=== PATIENT | female | born 1990 | race Caucasian/White ===

== ENCOUNTER 2018-06-14 06:10 | Emergency (ER) | payer SELFPAY ==
[2018-06-14] MEDS ORDERED: ONDANSETRON 4 MG/2 ML VIAL ONE (06:33)
[2018-06-14] MEDS ORDERED: MORPHINE 4 MG/ML SYR ONE ×2 (06:33→08:29)
[2018-06-14] MEDS ORDERED: NA CHLORIDE 0.9% 1,000 ML ONE (06:33)
[2018-06-14 06:37] LABS: Absolute Lymphocytes (CBC) 1.5 K/uL (0.7-4.9); Absolute Monocytes 0.5 K/uL (0.1-1.3); Absolute Neutrophil 8.3 K/uL (1.8-8.0); Basophils % 0.1 % (0-1.3); Eosinophils % 0.5 % (0-4.4); Hematocrit 30.8 % (36.0-45.0); Lymphocytes % 14.8 % (15.3-44.8); MPV 7.5 fL (7.6-11.3); Monocytes % 4.5 % (3.3-12.3); RBC Red Blood Cell Count 4.77 M/uL (3.86-4.86)
[2018-06-14 06:50] LABS: ALT/SGPT 26 U/L (12-78); AST/SGOT 14 U/L (15-37); Albumin 3.7 g/dL (3.4-5.0); Alkaline Phosphatase 75 U/L (45-117); BUN Blood Urea Nitrogen 10 mg/dL (7-18); Bicarbonate 27 mmol/L (21-32); Bilirubin Direct < 0.1 mg/dL (0-0.2); Bilirubin Total 0.2 mg/dL (0.2-1.0); Glucose Level 108 mg/dL (74-106); Lipase 88 U/L (73-393); Potassium 3.7 mmol/L (3.5-5.1); Sodium Level 139 mmol/L (136-145)
[2018-06-14 07:01] LABS: Urine Blood TRACE (NEG); Urine Glucose NEGATIVE (NEG); Urine Protein 2+ (NEG); Urine pH 5.5 (5.0-7.0)
[2018-06-14 07:21] LABS: Anisocytosis 1+; Blood Morphology Comment NOTED (NOT SEEN); Hypochromasia 2+; Platelet Estimate INCR; Polychromasia 1+; Urine White Blood Cell Casts OK
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
== END 2018-06-14 09:03 | disposition home or self-care (01) ==
LOC: ER 06:10
DX: S16.1XXA Strain of muscle, fascia and tendon at neck level, initial encounter (principal); D64.9 Anemia, unspecified; V48.4XXA Person boarding or alighting a car injured in noncollision transport accident, initial encounter; Z88.0 Allergy status to penicillin
CPT/HCPCS: 36415; 70450; 71260; 72125; 74177; 80048; 80076; 81003; 81025; 83690; 85025; 87086; 87088; 96374; 96375; 99285; J2405; J7030; Q9967

== ENCOUNTER 2018-08-25 17:28 | Emergency (ER) | payer SELFPAY ==
--- NOTE | 2018-08-25 18:05 | EDPHYS ---
Physician Documentation [facility] Name: Jess Vasquez Age: 28 yrs Sex: Female : 1990 Arrival Date: 08/25/2018 Time: 17:30 Bed 11 Private MD: None, None ED Physician Sebastien Judd HPI: 08/25 17:51 This 28 yrs old Female presents to ER via Ambulatory with complaints of Ear ps1 Pain, Sore Throat. 17:51 patient was seen and evaluated in [place] and was rx auralgan and some antibiotic for ps1 left ear infection. Here for second opinion now that she is back [place] the [place]. Started medications yesterday. Pain localized to front of ear and in the ear. No fever. . 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 - Social history:: Smoking status: Patient/guardian denies using tobacco. - Ebola Screening: : No symptoms or risks identified at this time. ROS: 17:51 Constitutional: Negative for fever, chills, and weight loss, Eyes: Negative for injury, ps1 pain, redness, and discharge, Cardiovascular: Negative for chest pain, palpitations, and edema, Respiratory: Negative for shortness of breath, cough, wheezing, and pleuritic chest pain, Abdomen/GI: Negative for abdominal pain, nausea, vomiting, diarrhea, and constipation, Neuro: Negative for headache, weakness, numbness, tingling, and seizure, Psych: Negative for depression, anxiety, suicide ideation, homicidal ideation, and hallucinations. 17:51 ENT: Positive for ear pain. Exam: 17:51 Constitutional: This is a well developed, well nourished patient who is awake, alert, ps1 and in no acute distress. Head/Face: Normocephalic, atraumatic. Eyes: Pupils equal round and reactive to light, extra-ocular motions intact. Lids and lashes normal. Conjunctiva and sclera are non-icteric and not injected. Cardiovascular: Regular rate and rhythm. No gallops, murmurs, or rubs. Normal PMI, no JVD. No pulse deficits. Respiratory: Lungs have equal breath sounds bilaterally, clear to auscultation and percussion. No rales, rhonchi or wheezes noted. No increased work of breathing, no retractions or nasal flaring. Abdomen/GI: Soft, non-tender, with normal bowel sounds. No distension or tympany. No guarding or rebound. No evidence of tenderness throughout. Skin: Warm, dry with normal turgor. Normal color with no rashes, no lesions, and no evidence of cellulitis. MS/ Extremity: Pulses equal, no cyanosis. Neurovascular intact. Full, normal range of motion. 17:51 ENT: External ear(s): are unremarkable, Ear canal(s): are normal, TM's: bulging, decreased mobility, on the left. Vital Signs: 17:36 BP 118 / 70; Pulse 69; Resp 16 S; Temp 98.6(O); Pulse Ox 99% on R/A; Weight 98.88 kg aa5 (R); Height 5 ft. 5 in. (165.10 cm) (R); Pain 10/10; 17:36 Body Mass Index 36.28 (98.88 kg, 165.10 cm) aa5 MDM: 17:51 Data reviewed: vital signs, nurses notes, and as a result, I will discharge patient. ED ps1 course: continue with auralgan drops and will prescribe ciproHC otic. Stable for dc. . 18:04 Patient medically screened. ps1 Administered Medications: No medications were administered Disposition: 08/25/18 18:04 Discharged to Home. Impression: Other acute nonsuppurative otitis media, left ear. - Condition is Stable. - Discharge Instructions: Ear Drops, Adult, Otitis Media, Adult. - Prescriptions for Cipro HC 0.2- 1 % Otic Drops - instill 3 drop by OTIC route every 12 hours for 7 days; 10 milliliter. - Work release form, Medication Reconciliation Form, Thank You Letter, Antibiotic Education, Prescription Opioid Use form. - Follow up: Private Physician; When: As needed; Reason: Recheck today's complaints. Follow up: Emergency Department; When: As needed; Reason: Worsening of condition. - Problem is an ongoing problem. - Symptoms have worsened. Signatures: Jennifer Story RN RN aa5 Jovanna Hernandez RN Sebastien Burch MD MD ps1 Corrections: (The following items were deleted from the chart) 18:04 18:04 08/25/2018 18:04 Discharged to Home. Impression: Other acute nonsuppurative ps1 otitis media, left ear. Condition is Stable. Forms are Medication Reconciliation Form, Thank You Letter, Antibiotic Education, Prescription Opioid Use. Follow up: Private Physician; When: As needed; Reason: Recheck today's complaints. Follow up: Emergency Department; When: As needed; Reason: Worsening of condition. ps1 18:19 18:04 08/25/2018 18:04 Discharged to Home. Impression: Other acute nonsuppurative hb otitis media, left ear. Condition is Stable. Forms are Medication Reconciliation Form, Thank You Letter, Antibiotic Education, Prescription Opioid Use. Follow up: Private Physician; When: As needed; Reason: Recheck today's complaints. Follow up: Emergency Department; When: As needed; Reason: Worsening of condition. Problem is an ongoing problem. Symptoms have worsened. ps1
--- NOTE | 2018-08-25 18:05 | ER ---
Nurse's Notes [facility] Name: Jess Vasquez Age: 28 yrs Sex: Female : 1990 Arrival Date: 08/25/2018 Time: 17:30 Bed 11 Private MD: None, None Diagnosis: Other acute nonsuppurative otitis media, left ear Presentation: 08/25 17:35 Presenting complaint: Patient states: left ear pain and sore throat that began 1 week aa5 ago. Pt states "I was prescribed antibiotics yesterday in [place]". Transition of care: patient was not received from another setting of care. Onset of symptoms was August 2018. Risk Assessment: Do you want to hurt yourself or someone else? Patient reports no desire to harm self or others. Initial Sepsis Screen: Does the patient meet any 2 criteria? No. Patient's initial sepsis screen is negative. Does the patient have a suspected source of infection? No. Patient's initial sepsis screen is negative. Care prior to arrival: None. 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 - Social history:: Smoking status: Patient/guardian denies using tobacco. - Ebola Screening: : No symptoms or risks identified at this time. Screenin:45 Abuse screen: Denies threats or abuse. Denies injuries from another. Nutritional hb screening: No deficits noted. Tuberculosis screening: No symptoms or risk factors identified. Fall Risk None identified. Assessment: 17:45 General: Appears in no apparent distress. Behavior is calm, cooperative. Pain: Pain hb currently is 7 out of 10 on a pain scale. Neuro: Level of Consciousness is awake, alert, obeys commands, Oriented to person, place, time, situation. Cardiovascular: Capillary refill < 3 seconds Patient's skin is warm and dry. Respiratory: Airway is patent Respiratory effort is even, unlabored, Respiratory pattern is regular, symmetrical, Breath sounds are clear bilaterally. GI: No signs and/or symptoms were reported involving the gastrointestinal system. : No signs and/or symptoms were reported regarding the genitourinary system. EENT: Reports sore throat, left ear pain. Derm: Skin is intact, is healthy with good turgor. Musculoskeletal: No signs and/or symptoms reported regarding the musculoskeletal system. Vital Signs: 17:36 BP 118 / 70; Pulse 69; Resp 16 S; Temp 98.6(O); Pulse Ox 99% on R/A; Weight 98.88 kg aa5 (R); Height 5 ft. 5 in. (165.10 cm) (R); Pain 10/10; 17:36 Body Mass Index 36.28 (98.88 kg, 165.10 cm) aa5 ED Course: 17:31 Patient arrived in ED. mr 17:31 None, None is Private Physician. mr 17:35 Arm band placed on. aa5 17:36 Triage completed. aa5 17:40 Jovanna Hernandez, RN is Primary Nurse. hb 17:43 Sebastien Judd MD is Attending Physician. ps1 17:45 Patient has correct armband on for positive identification. Call light in reach. hb 18:19 No provider procedures requiring assistance completed. Patient did not have IV access hb during this emergency room visit. Administered Medications: No medications were administered Outcome: 18:04 Discharge ordered by . ps1 18:19 Discharged to home ambulatory, with significant other. hb 18:19 Condition: stable 18:19 Discharge instructions given to patient, Instructed on discharge instructions, follow up and referral plans. medication usage, Demonstrated understanding of instructions, follow-up care, medications, Prescriptions given X 1. 18:19 Patient left the ED. hb Signatures: Ofelia Coyne JezJennifer RN RN aa Jovanna Hernandez, RN RN Sebastien Judd MD MD ps1
== END 2018-08-25 18:19 | disposition home or self-care (01) ==
LOC: ER 17:28
DX: H65.192 Other acute nonsuppurative otitis media, left ear (principal); Z88.0 Allergy status to penicillin
CPT/HCPCS: 99282

== ENCOUNTER 2018-09-15 12:53 | Emergency (ER) | payer SELFPAY ==
[2018-09-15 15:37] LABS: Urine Appearance CLOUDY; Urine Color RED; Urine Specific Gravity 1.025 (1.005-1.030)
[2018-09-15 15:38] LABS: Urine Bilirubin NEGATIVE (NEG); Urine Blood 3+ (NEG); Urine Glucose NEGATIVE (NEG); Urine Microscopic Reflex ORDER UMIC; Urine Protein 1+ (NEG); Urine Urobilinogen 0.2 mg/dL (0.2-1.0); Urine pH 5.5 (5.0-7.0)
[2018-09-15 15:39] LABS: Urine Bacteria >50 /HPF (<20); Urine Culture Reflex Order REFLEXED; Urine RBC TNTC /HPF (NONE SEEN)
--- NOTE | 2018-09-15 16:30 | ER ---
Nurse's Notes [facility] Name: Jess Vasquez Age: 28 yrs Sex: Female : 1990 Arrival Date: 09/15/2018 Time: 12:57 Bed 13 Private MD: None, None Diagnosis: Cystitis, unspecified with hematuria Presentation: 09/15 13:29 Presenting complaint: Patient states: Heavy vaginal bleeding that began this morning. ss Pt reports she had her last period 2 weeks ago. Pt denies abnormal vaginal bleeding in the past. Transition of care: patient was not received from another setting of care. Onset of symptoms was September 15, 2018. Risk Assessment: Do you want to hurt yourself or someone else? Patient reports no desire to harm self or others. Initial Sepsis Screen: Does the patient meet any 2 criteria? HR > 90 bpm. Does the patient have a suspected source of infection? No. Patient's initial sepsis screen is negative. Note Pt reports she has been filling a large pad every 30 minutes. Care prior to arrival: None. 13:29 Method Of Arrival: Ambulatory 13:29 Acuity: MAGALY 2 Triage Assessment: 15:24 General: Appears in no apparent distress. distressed, Behavior is calm, cooperative, ph appropriate for age. Neuro: Level of Consciousness is awake, alert, obeys commands, Oriented to person, place, time, situation. Cardiovascular: Capillary refill < 3 seconds. Respiratory: Airway is patent Trachea midline Respiratory effort is even, unlabored, Respiratory pattern is regular. Derm: Skin is intact, is healthy with good turgor, Skin is dry, Skin is pink, warm \\T\\ dry. Skin temperature is warm. Musculoskeletal: Circulation, motion, and sensation intact. 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 - Social history:: Smoking status: Patient/guardian denies using tobacco. - Ebola Screening: : Patient denies exposure to infectious person Patient denies travel to an Ebola-affected area in the 21 days before illness onset. Screenin:00 Abuse screen: Denies threats or abuse. Nutritional screening: No deficits noted. ph Tuberculosis screening: No symptoms or risk factors identified. Fall Risk None identified. Assessment: 14:00 General: Appears in no apparent distress. comfortable, obese, well groomed, Behavior is ph calm, cooperative, appropriate for age, Reports fatigue for 1-2 days, Denies fever, feeling ill. Pain: Denies pain. Neuro: Level of Consciousness is awake, alert, obeys commands, Oriented to person, place, time, situation. Cardiovascular: Capillary refill < 3 seconds in bilateral fingers Patient's skin is warm and dry. Respiratory: Airway is patent Respiratory effort is even, unlabored, Respiratory pattern is regular, symmetrical. GI: Abdomen is round non-distended, Patient currently denies abdominal pain, nausea, vomiting. : Reports vaginal bleeding that is heavy flow "watery" consistency Denies burning with urination, cramping urinary frequency. Derm: Skin is intact, is healthy with good turgor, Skin is pink, warm \\T\\ dry. Musculoskeletal: Circulation, motion, and sensation intact. Range of motion: intact in all extremities. 15:00 Reassessment: Patient appears in no apparent distress at this time. Patient and/or ph family updated on plan of care and expected duration. Pain level reassessed. Patient is alert, oriented x 3, equal unlabored respirations, skin warm/dry/pink. 16:20 Reassessment: Patient appears in no apparent distress at this time. Patient and/or ph family updated on plan of care and expected duration. Pain level reassessed. Patient is alert, oriented x 3, equal unlabored respirations, skin warm/dry/pink. 17:13 Reassessment: Patient appears in no apparent distress at this time. Patient and/or ph family updated on plan of care and expected duration. Pain level reassessed. Patient is alert, oriented x 3, equal unlabored respirations, skin warm/dry/pink. Vital Signs: 13:32 BP 133 / 81; Pulse 106; Resp 15; Temp 98.3(TE); Pulse Ox 100% on R/A; Weight 95.71 kg; ss Height 5 ft. 3 in. (160.02 cm); Pain 0/10; 15:22 BP 119 / 69; Pulse 90; Resp 16; Pulse Ox 100% on R/A; ph 16:17 BP 111 / 59; Pulse 94; Resp 18; Pulse Ox 100% on R/A; ph 13:32 Body Mass Index 37.38 (95.71 kg, 160.02 cm) ED Course: 12:57 Patient arrived in ED. dl4 12:57 None, None is Private Physician. dl4 13:31 Triage completed. ss 13:32 Arm band placed on left wrist. ss 13:38 Bhavya Miranda, RN is Primary Nurse. ph 13:46 Shiraz Melvin MD is Attending Physician. gs 15:26 Bed in low position. Call light in reach. Warm blanket given. ph 16:21 No provider procedures requiring assistance completed. ph 16:27 Niranjan Rogers MD is Referral Physician. gs 17:13 Patient did not have IV access during this emergency room visit. ph Administered Medications: No medications were administered Outcome: 16:29 Discharge ordered by MD. gs 17:12 Discharged to home ambulatory. ph 17:12 Condition: good 17:12 Discharge instructions given to patient, Instructed on discharge instructions, follow up and referral plans. medication usage, Demonstrated understanding of instructions, follow-up care, medications, Prescriptions given X 1. 17:14 Patient left the ED. ph Signatures: Shira Scruggs RN RN Bhavya Miranda RN RN ph Shiraz Melvin MD MD Grant Jane dl4
--- NOTE | 2018-09-15 16:30 | EDPHYS ---
Physician Documentation [facility] Name: eJss Vasquez Age: 28 yrs Sex: Female : 1990 Arrival Date: 09/15/2018 Time: 12:57 Bed 13 Private MD: None, None ED Physician Shiraz Melvin HPI: 09/15 16:16 This 28 yrs old Female presents to ER via Ambulatory with complaints of gs Vaginal Bleeding. 16:16 The patient presents with urinary symptoms, dysuria, hematuria, vaginal bleeding that gs is light. Onset: The symptoms/episode began/occurred yesterday. Modifying factors: The symptoms are alleviated by nothing, the symptoms are aggravated by nothing. Associated signs and symptoms: Pertinent negatives: fever. Associated signs and symptoms: Pertinent negatives: pain to abdomen. Severity of symptoms: At their worst the symptoms were. The patient has not experienced similar symptoms in the past. 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 - Social history:: Smoking status: Patient/guardian denies using tobacco. - Ebola Screening: : Patient denies exposure to infectious person Patient denies travel to an Ebola-affected area in the 21 days before illness onset. ROS: 16:16 All other systems are negative. gs Exam: 16:16 Head/Face: Normocephalic, atraumatic. Eyes: Pupils equal round and reactive to light, gs extra-ocular motions intact. Lids and lashes normal. Conjunctiva and sclera are non-icteric and not injected. Cornea within normal limits. Periorbital areas with no swelling, redness, or edema. ENT: Nares patent. No nasal discharge, no septal abnormalities noted. Tympanic membranes are normal and external auditory canals are clear. Oropharynx with no redness, swelling, or masses, exudates, or evidence of obstruction, uvula midline. Mucous membranes moist. Neck: Trachea midline, no thyromegaly or masses palpated, and no cervical lymphadenopathy. Supple, full range of motion without nuchal rigidity, or vertebral point tenderness. No Meningismus. Chest/axilla: Normal chest wall appearance and motion. Nontender with no deformity. No lesions are appreciated. Cardiovascular: Regular rate and rhythm with a normal S1 and S2. No gallops, murmurs, or rubs. Normal PMI, no JVD. No pulse deficits. Respiratory: Lungs have equal breath sounds bilaterally, clear to auscultation and percussion. No rales, rhonchi or wheezes noted. No increased work of breathing, no retractions or nasal flaring. Abdomen/GI: Soft, non-tender, with normal bowel sounds. No distension or tympany. No guarding or rebound. No evidence of tenderness throughout. Back: No spinal tenderness. No costovertebral tenderness. Full range of motion. Skin: Warm, dry with normal turgor. Normal color with no rashes, no lesions, and no evidence of cellulitis. MS/ Extremity: Pulses equal, no cyanosis. Neurovascular intact. Full, normal range of motion. Neuro: Awake and alert, GCS 15, oriented to person, place, time, and situation. Cranial nerves II-XII grossly intact. Motor strength 5/5 in all extremities. Sensory grossly intact. Cerebellar exam normal. Normal gait. 16:16 Constitutional: The patient appears alert, awake. Vital Signs: 13:32 BP 133 / 81; Pulse 106; Resp 15; Temp 98.3(TE); Pulse Ox 100% on R/A; Weight 95.71 kg; ss Height 5 ft. 3 in. (160.02 cm); Pain 0/10; 15:22 BP 119 / 69; Pulse 90; Resp 16; Pulse Ox 100% on R/A; ph 16:17 BP 111 / 59; Pulse 94; Resp 18; Pulse Ox 100% on R/A; ph 13:32 Body Mass Index 37.38 (95.71 kg, 160.02 cm) ss MDM: 14:04 Patient medically screened. gs 16:16 Differential diagnosis: menometrorrhagia, urinary tract infection. Data reviewed: vital gs signs, nurses notes, lab test result(s). Counseling: I had a detailed discussion with the patient and/or guardian regarding: the historical points, exam findings, and any diagnostic results supporting the discharge/admit diagnosis, lab results, the need for outpatient follow up. 09/15 14:21 Order name: Urinalysis; Complete Time: 16:14 dh3 09/15 14:04 Order name: Urine Test (obtain specimen); Complete Time: 14:19 gs 09/15 15:40 Order name: Urine Microscopic Only; Complete Time: 16:14 EDMS 09/15 15:40 Order name: Urine Culture [facility] 09/15 16:17 Order name: Urine --Ancillary (enter results) ph 09/15 14:04 Order name: Urine Dipstick-Ancillary (obtain specimen); Complete Time: 14:19 gs Administered Medications: No medications were administered Disposition: 09/15/18 16:29 Discharged to Home. Impression: Cystitis, unspecified with hematuria. - Condition is Stable. - Discharge Instructions: Urinary Tract Infection, Adult. - Prescriptions for Macrobid 100 mg Oral Capsule - take 1 capsule by ORAL route every 12 hours for 7 days; 14 capsule. - Work release form, Medication Reconciliation Form, Thank You Letter, Antibiotic Education, Prescription Opioid Use form. - Follow up: Niranjan Rogers MD; When: 2 - 3 days; Reason: Re-evaluation by your physician. Signatures: Dispatcher [employer] [facility] Shira Scruggs RN RN ss Bhavya Miranda RN RN ph Melvin, MD KRISTYN Weldon Corrections: (The following items were deleted from the chart) 15:53 14:05 UA MICROSCOPIC+U.LAB.BRZ ordered. [facility] 17:14 16:29 09/15/2018 16:29 Discharged to Home. Impression: Cystitis, unspecified with ph hematuria. Condition is Stable. Forms are Medication Reconciliation Form, Thank You Letter, Antibiotic Education, Prescription Opioid Use. Follow up: Niranjan Rogers; When: 2 - 3 days; Reason: Re-evaluation by your physician. gs
[2018-09-15 20:09] LABS: Urine Specific Gravity 1.025 (1.005-1.030)
== END 2018-09-15 17:14 | disposition home or self-care (01) ==
LOC: ER 12:53
DX: N30.91 Cystitis, unspecified with hematuria (principal)
CPT/HCPCS: 81003; 81015; 81025; 87086; 87088; 99282

== ENCOUNTER 2020-07-27 10:52 | Emergency (ER) | payer OTHER, SELFPAY ==
[2020-07-27] MEDS ORDERED: HYDROCODONE/APAP 5/325 MG TAB ONE (11:53)
--- NOTE | 2020-07-27 11:55 | RAD REPORT ---
EXAM DESCRIPTION: RAD - Hand Right 3 View - 07/27/2020 11:41 am CLINICAL HISTORY: Right hand pain status post injury FINDINGS: No fracture or dislocation is seen.
--- NOTE | 2020-07-27 12:01 | EDPHYS ---
Physician Documentation [facility] Name: Jess Vasquez Age: 30 yrs Sex: Female : 1990 Arrival Date: 07/27/2020 Time: 10:59 Bed 12 Private MD: ED Physician Dylan Schmitz HPI: 07/27 11:59 This 30 yrs old Female presents to ER via Ambulatory with complaints of Fall kb Injury, Hand Pain, Hand Injury. 11:59 The patient or guardian reports decreased range of motion, injury, pain, tenderness. kb The complaints affect the right thumb and lateral aspect of right hand. Context: The problem was sustained at home, resulted from a fall. Onset: The symptoms/episode began/occurred just prior to arrival. Modifying factors: The symptoms are alleviated by nothing, the symptoms are aggravated by movement. Associated signs and symptoms: The patient has no apparent associated signs or symptoms. Severity of symptoms: At their worst the symptoms were moderate, in the emergency department the symptoms are unchanged. The patient has not experienced similar symptoms in the past. The patient has not recently seen a physician. Pt reports she tripped over her dog and fell landing on right thumb. Reports pain and decreased rom to right thumb. 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 - Social history:: Smoking status: Patient denies any tobacco usage or history of. ROS: 11:55 Constitutional: Negative for fever, chills, and weight loss, Skin: Negative for injury, kb rash, and discoloration, Neuro: Negative for headache, weakness, numbness, tingling, and seizure. 11:55 MS/extremity: Positive for injury or acute deformity, decreased range of motion, pain, tenderness, of the lateral aspect of right hand and right thumb. Exam: 11:55 Constitutional: This is a well developed, well nourished patient who is awake, alert, kb and in no acute distress. Head/Face: Normocephalic, atraumatic. Skin: Warm, dry with normal turgor. Normal color with no rashes, no lesions, and no evidence of cellulitis. 11:55 Respiratory: the patient does not display signs of respiratory distress, Respirations: normal. 11:55 Musculoskeletal/extremity: Extremities: grossly normal except: noted in the right thumb and lateral aspect of right hand: decreased ROM, pain, tenderness, ROM: limited active range of motion due to pain, in the right thumb, Circulation is intact in all extremities. Sensation intact. Vital Signs: 11:01 BP 126 / 80; Pulse 76; Resp 16 S; Temp 97.8(O); Pulse Ox 100% on R/A; Weight 107.5 kg ca1 (R); Height 5 ft. 5 in. (165.10 cm) (R); Pain 10; 11:01 Body Mass Index 39.44 (107.50 kg, 165.10 cm) ca1 MDM: 11:14 Patient medically screened. kb 11:55 Data reviewed: vital signs, nurses notes. Data interpreted: Pulse oximetry: on room air kb is 100 %. Interpretation: normal. Counseling: I had a detailed discussion with the patient and/or guardian regarding: the historical points, exam findings, and any diagnostic results supporting the discharge/admit diagnosis, radiology results, the need for outpatient follow up, a orthopedic surgeon, to return to the emergency department if symptoms worsen or persist or if there are any questions or concerns that arise at home. 07/27 11:18 Order name: Hand Right 3 View XRAY; Complete Time: 12:00 kb Administered Medications: 11:37 Drug: [place] 5 mg-325 mg 1 tabs Route: PO; aa5 12:15 Follow up: Response: No adverse reaction aa5 Disposition: 17:55 Co-signature as Attending Physician, Dylan Schmitz MD. rn Disposition: 07/27/20 12:01 Discharged to Home. Impression: Pain in right hand. - Condition is Stable. - Discharge Instructions: Musculoskeletal Pain, Thumb Sprain. - Medication Reconciliation Form, Thank You Letter, Antibiotic Education, Prescription Opioid Use, Work release form form. - Follow up: Private Physician; When: 2 - 3 days; Reason: Recheck today's complaints, Continuance of care, Re-evaluation by your physician. Follow up: Emergency Department; When: As needed; Reason: Worsening of condition. Signatures: Dispatcher [employer] Tanja Reeves FNP-C PSYCHOLOGICAL ANTHROPOLOGIST-CkDylan Russo MD MD rn Jennifer Story, RN RN aa5 Jeniffer Sierra RN RN ca1 Corrections: (The following items were deleted from the chart) 12:18 12:01 07/27/2020 12:01 Discharged to Home. Impression: Pain in right hand. Condition is aa5 Stable. Forms are Medication Reconciliation Form, Thank You Letter, Antibiotic Education, Prescription Opioid Use. Follow up: Private Physician; When: 2 - 3 days; Reason: Recheck today's complaints, Continuance of care, Re-evaluation by your physician. Follow up: Emergency Department; When: As needed; Reason: Worsening of condition. kb
--- NOTE | 2020-07-27 12:01 | ER ---
Nurse's Notes [facility] Name: Jess Vasquez Age: 30 yrs Sex: Female : 1990 Arrival Date: 07/27/2020 Time: 10:59 Bed 12 Private MD: Diagnosis: Pain in right hand Presentation: 07/27 11:01 Chief complaint: Patient states: stepped on dog, fell and caught self with R hand. C/O ca1 pain on R hand, unable to more all fingers on R hand. 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 Coronavirus screen: Client denies travel out of the [place] in the last 14 days. At this time, the client does not indicate any symptoms associated with coronavirus-19. Ebola Screen: Patient negative for fever greater than or equal to 101.5 degrees Fahrenheit, and additional compatible Ebola Virus Disease symptoms Patient denies exposure to infectious person. Patient denies travel to an Ebola-affected area in the 21 days before illness onset. No symptoms or risks identified at this time. Initial Sepsis Screen: Does the patient meet any 2 criteria? No. Patient's initial sepsis screen is negative. Does the patient have a suspected source of infection? No. Patient's initial sepsis screen is negative. Risk Assessment: Do you want to hurt yourself or someone else? Patient reports no desire to harm self or others. Onset of symptoms was July 27, 2020. 11:01 Method Of Arrival: Ambulatory ca1 11:01 Acuity: MAGALY 4 ca1 Triage Assessment: 11:03 General: Appears in no apparent distress. comfortable, Behavior is calm, cooperative, ca1 appropriate for age. Pain: Complains of pain in right hand Pain currently is 10 out of 10 on a pain scale. Pain began 3 hours ago. EENT: No signs and/or symptoms were reported regarding the EENT system. Neuro: Level of Consciousness is awake, alert, obeys commands, Oriented to person, place, time, situation. Derm: Skin is intact, is healthy with good turgor, Skin is pink, warm \T\ dry. Musculoskeletal: Circulation, motion, and sensation intact. Capillary refill < 3 seconds, Range of motion: limited in IP of right thumb, MCP of right thumb and CMC of right thumb. 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 - Social history:: Smoking status: Patient denies any tobacco usage or history of. Screenin:06 Abuse screen: Denies threats or abuse. Denies injuries from another. Nutritional ca1 screening: No deficits noted. Tuberculosis screening: No symptoms or risk factors identified. Fall Risk Fall in past 12 months (25 points). Assessment: 11:06 Reassessment: see triage notes. ca1 12:15 Reassessment: Patient is alert, oriented x 3, equal unlabored respirations, skin aa5 warm/dry/pink. Vital Signs: 11:01 BP 126 / 80; Pulse 76; Resp 16 S; Temp 97.8(O); Pulse Ox 100% on R/A; Weight 107.5 kg ca1 (R); Height 5 ft. 5 in. (165.10 cm) (R); Pain 10/10; 11:01 Body Mass Index 39.44 (107.50 kg, 165.10 cm) ca1 ED Course: 10:59 Patient arrived in ED. ag5 11:02 Triage completed. ca1 11:03 Arm band placed on right wrist. ca1 11:05 Jeniffer Sierra, RN is Primary Nurse. ca1 11:06 Patient has correct armband on for positive identification. Bed in low position. Call ca1 light in reach. 11:07 No provider procedures requiring assistance completed. Patient did not have IV access ca1 during this emergency room visit. 11:14 Tanja Marie FNP-C is PHCP. kb 11:14 Dylan Schmitz MD is Attending Physician. kb 11:41 Hand Right 3 View XRAY In Process Unspecified. EDMS Administered Medications: 11:37 Drug: [place] 5 mg-325 mg 1 tabs Route: PO; aa5 12:15 Follow up: Response: No adverse reaction aa5 Outcome: 12:01 Discharge ordered by . kb 12:15 Discharged to home ambulatory. aa5 12:15 Condition: stable 12:15 Discharge instructions given to patient, Instructed on discharge instructions, follow up and referral plans. Demonstrated understanding of instructions, follow-up care. 12:18 Patient left the ED. aa5 Signatures: Dispatcher [employer] EDTanja Ramachandran, [employer]-C [employer]SEMBLER [employer]-Jennifer Lincoln RN RN aa5 Jeniffer Sierra RN RN ca1 Logan Aguilar ag5 Corrections: (The following items were deleted from the chart) 11:03 11:01 Chief complaint: Patient states: stepped on dog, fell and caught self with R ca1 hand. C/O pain on R hand, unable to more all fingers on R hand ca1
[2020-07-27 12:49] VITALS: BP 126/80; TEMP 97.8; O2SAT 100
== END 2020-07-27 12:18 | disposition home or self-care (01) ==
LOC: ER 10:52
DX: M79.641 Pain in right hand (principal); W54.8XXA Other contact with dog, initial encounter
CPT/HCPCS: 99283

== ENCOUNTER 2020-09-27 13:56 | Emergency (ER) | payer SELFPAY ==
--- OUTSIDE RECORDS SUMMARY | 2020-09-27 13:58 | XMS REPORT | Continuity of Care Document ---
:1990 Author Organization [facility] t Address [address] [place] [address] Care Team Providers Name Role Phone Unavailable Unavailable Unavailable Payers Payer Name Policy Type Policy Number Effective Date Expiration Date S ource Problems This patient has no known problems. Allergies, Adverse Reactions, Alerts Allergy Allergy Status Severity Reaction(s) Onset Inactive Treating Comm ents Source Name Type Date Date Clinician [place] DA Active [place] [facility] ins 06-12 [place] 00:00: [address] Medications This patient has no known medications. Procedures This patient has no known procedures. Results Test Description Test Time Test Comments Results Result Comments Source CBC W/AUTO DIFF 2020-09-17 02:21:00 Test Item Value Reference Range Interpretation Comme nts WHITE BLOOD CELL (test code = WBC) 10.1 K/mm3 4.8-10.8 N RED BLOOD CELL (test code = RBC) 4.24 M/mm3 4.2-5.4 N HEMOGLOBIN (test code = HGB) 10.4 gm/DL 12.0-16.0 L HEMATOCRIT (test code = HCT) 36.0 % 34.7-43.3 N MEAN CELL VOLUME (test code = MCV) 84.9 fL 81-99 N MEAN CELL HGB (test code = MCH) 24.5 pg 27-31 L MEAN CELL HGB CONCETRATION (test code = MCHC) 28.9 gm/dL 33-37 L RED CELL DISTRIBUTION WIDTH (test code = RDW) 22.0 % 11.5-14. 5 H PLATELET COUNT (test code = PLT) 403 X10(3) 130-400 H MEAN PLATELET VOLUME (test code = MPV) 9.2 fL 9.4-12.4 L NEUTROPHIL % (test code = NT%) 70.1 % 51.5-79.7 N IMMATURE GRANULOCYTE % (test code = IG%) 0.600 % 0.108-0.322 H LYMPHOCYTE % (test code = LY%) 24.1 % 14-40 N MONOCYTE % (test code = MO%) 4.0 % 4.0-10.2 N EOSINOPHIL % (test code = EO%) 1.0 % 0-4.1 N BASOPHIL % (test code = BA%) 0.2 % 0.1-0.7 N NUCLEATED RBC % (test code = NRBC%) 0.0 % 0-0 N NEUTROPHIL # (test code = NT#) 7.1 K/mm3 2.5-8.6 N IMMATURE GRANULOCYTE # (test code = IG#) 0.060 K/mm3 0.0052-0.0224 H LYMPHOCYTE # (test code = LY#) 2.4 K/mm3 1.1-3.6 N MONOCYTE # (test code = MO#) 0.4 K/mm3 0.3-0.9 N EOSINOPHIL # (test code = EO#) 0.10 # 0.0-0.4 N BASOPHIL # (test code = BA#) 0.02 K/mm3 0.0-0.2 N NUCLEATED RBC # (test code = NRBC#) 0.00 K/mm3 0.00-0.20 N RBC [id number] 02:21:00 Test Item Value Reference Range Interpretation Comments HYPOCHROMIA (test code = HYPO) 1+ ANISOCYTOSIS (test code = ANISO) 1+ MICROCYTOSIS (test code = MICR) 1+ - US PELVIC [id number] 23:51:00 [facility] : 1990 Sex: F [place]: [facility]: REG Name: CHAYO MOURA [place] [facility] : 1990 Age/S: 30/F [address] [facility] Unit #: [id number] Loc: .[place], [place] [address] Phys: Zach Guzman MD Acct: [id number] Dis Date: Status: REG ER PHONE #: [phone] Exam Date:09/16/2020 2328 FAX #: [phone] Reason: PELVIC PAIN EXAMS: CPT CODE: [id number] PELVIC COMPLETE 62932 DICTATION LOCATION: [facility] HISTORY: Female, 30 years of age with pelvic pain EXAM: TRANSABDOMINAL AND TRANSVAGINAL PELVIC ULTRASOUNDS COMPARISON: Previous pelvic ultrasound performed 03/22/2016 TECHNIQUE: Transabdominal and endovaginal scans with color and pulse wave Doppler interrogation were performed. FINDINGS: UTERUS: Normal size measuring 9.1 x 4.9 x 6.5 cm. No myometrial masses are seen. Endometrium: 10.7 mm AP dimension. Endometrium is normal thickness and echogenicity. RIGHT OVARY: 3.0 x 1.8 x 2.6 cm No discrete rightovarian mass. Ovarian blood flow documented with Doppler. LEFT OVARY: 3.7 x 1.8 x 3.4 cm No discrete left ovarian mass. Ovarian blood flow documented with Doppler. OTHER: No complex adnexal mass. No free fluid in cul-de-sac. IMPRESSION: Normal pelvic ultrasound. at 2351 Reported and signed by: AMARJIT RUSS M.D. Facility ACR Accreditation for Ultrasound - July 2011 CC: Zach Guzman MD Technologist: [id number]; BLAINE DE LA VEGA RDSC, RVS Transcribed Date/Time/By: 09/16/2020 (7314) : By: CecilW Orig Print D/T: S: 09/16/2020 (3565) PAGE 1 Signed Report- US TRANSVAGINAL NON [id number] 23:51:00 [facility] [place] : 1990 Sex: F [place]: [facility] St: REG Name: CHAYO MOURA [facility] : 1990 Age/S: 30/F [address] Unit #: [id number] Loc: [place], [place] [address] Phys: Zach Guzman MD Acct: [id number] Dis Date: Status: REG ER PHONE #: [phone] Exam Date:09/16/20207 FAX #: [phone] Reason: pelvic pain EXAMS: CPT CODE: [id number] [address] DICTATION LOCATION: H48 HISTORY: Female, 30 years of age with pelvic pain EXAM: TRANSABDOMINAL AND TRANSVAGINAL PELVIC ULTRASOUNDS COMPARISON: Previous pelvic ultrasound performed 03/22/2016 TECHNIQUE: Transabdominal and endovaginal scans with color and pulse wave Doppler interrogation were performed. FINDINGS: UTERUS: Normal size measuring 9.1 x 4.9 x 6.5 cm. No myometrial masses are seen. Endometrium: 10.7 mm AP dimension. Endometrium is normal thickness and echogenicity. RIGHT OVARY: 3.0 x 1.8 x 2.6 cm No discrete rightovarian mass. Ovarian blood flow documented with Doppler. LEFT OVARY: 3.7 x 1.8 x 3.4 cm No discrete left ovarian mass. Ovarian blood flow documented with Doppler. OTHER: No complex adnexal mass. No free fluid in cul-de-sac. IMPRESSION: Normal pelvic ultrasound. at 2351 Reported and signed by: AMARJIT RUSS M.D. Facility ACR Accreditation for Ultrasound - July 2011 CC: Zach Guzman MD Technologist: [id number]; BLAINE DE LA VEGA RDMS, RVS Transcribed Date/Time/By: 09/16/2020 (2437) : By: Noel Orig Print D/T: S: 09/16/2020 (1646) PAGE 1 Signed ReportHCG [id number] 22:56:00 Test Item Value Reference Range Interpretation Comments HCG SERUM (test <1 mIU/mL <5 Reporting Un its: code = HCG) micro-internati onal units/mL Concen tration of beta-HCG if hea lthy non- fe maleis less than 5 micro-in ternational units/mL. Weeks Post LMP Approx hCG Range(Last Menstrual Period) micro-internati onal units/mL======= ===== == 3-4 weeks 9 - 130 4-5 weeks 75 - 2,600 5-6 weeks 850 - 20, 800 6-7 weeks 4,000 - 100 ,200 7-12 weeks 11,500 - 289 ,82075-13 weeks 18,300 - 137 ,45162-89 weeks 1,400 - 53, 000(2nd Trimester)29-41 weeks 940 - 60,000(3rd Tr imester) BASIC METABOLIC [id number] 22:54:00 Test Item Value Reference Range Interpretation Comments SODIUM (test code = 139 mmol/L 136-145 N NA) POTASSIUM (test code = 3.4 mmol/L 3.5-5.1 L K) CHLORIDE (test code = 107 mmol/L 98-107 N CL) CARBON DIOXIDE (test 25 mmol/L 21-32 N code = CO2) GLUCOSE (test code = 96 mg/dL 65-99 N GLU) BLOOD UREA NITROGEN 10 mg/dL 7-18 N (test code = BUN) GLOMERULAR FILTRATION 127 Report ing units: RATE (test code = GFR) ml/mi n/1.73m\S\2 (Modified MDRD Formula)If age < 18 years, GFR is n ot applicable. KD/ DOQI Clinical Practi ce Guidelines: Sta ge 1: Kidney damage w/normal or inc reased GFR >90Stag e 2: Kidney damage w /mild decrease in GFR 60 - 89Stage 3: Moderate decrea se in GFR 30 - 59Stage 4: Severe decrease in GFR 15 - 29Stage 5: Kidney failure < 15 (or dialysis) CREATININE (test code 0.6 mg/dL 0.6-1.0 N = CREAT) CALCIUM (test code = 9.3 mg/dL 7.8-10.9 N CA) CBC W/AUTO [id number] 22:54:00 Test Item Value Reference Range Interpretation Comments WHITE BLOOD CELL (test code = 10.1 K/mm3 4.8-10.8 N WBC) RED BLOOD CELL (test code = RBC) 4.24 M/mm3 4.2-5.4 N HEMOGLOBIN (test code = HGB) 10.4 gm/DL 12.0-16.0 L HEMATOCRIT (test code = HCT) 36.0 % 34.7-43.3 N MEAN CELL VOLUME (test code = 84.9 fL 81-99 N MCV) MEAN CELL HGB (test code = MCH) 24.5 pg 27-31 L MEAN CELL HGB CONCETRATION (test 28.9 gm/dL 33-37 L code = MCHC) RED CELL DISTRIBUTION WIDTH (test 22.0 % 11.5-14.5 H code = RDW) PLATELET COUNT (test code = PLT) 403 X10(3) 130-400 H MEAN PLATELET VOLUME (test code = 9.2 fL 9.4-12.4 L MPV) NEUTROPHIL % (test code = NT%) 70.1 % 51.5-79.7 N IMMATURE GRANULOCYTE % (test code 0.600 % 0.108-0.322 H = IG%) LYMPHOCYTE % (test code = LY%) 24.1 % 14-40 N MONOCYTE % (test code = MO%) 4.0 % 4.0-10.2 N EOSINOPHIL % (test code = EO%) 1.0 % 0-4.1 N BASOPHIL % (test code = BA%) 0.2 % 0.1-0.7 N NUCLEATED RBC % (test code = 0.0 % 0-0 N NRBC%) NEUTROPHIL # (test code = NT#) 7.1 K/mm3 2.5-8.6 N IMMATURE GRANULOCYTE # (test code 0.060 K/mm3 0.0052-0.0224 H = IG#) LYMPHOCYTE # (test code = LY#) 2.4 K/mm3 1.1-3.6 N MONOCYTE # (test code = MO#) 0.4 K/mm3 0.3-0.9 N EOSINOPHIL # (test code = EO#) 0.10 # 0.0-0.4 N BASOPHIL # (test code = BA#) 0.02 K/mm3 0.0-0.2 N NUCLEATED RBC # (test code = 0.00 K/mm3 0.00-0.20 N NRBC#) BASIC METABOLIC [id number] 22:50:00 Test Item Value Reference Range Interpretation Comments SODIUM (test code = NA) 139 mmol/L 136-145 N POTASSIUM (test code = K) 3.4 mmol/L 3.5-5.1 L CHLORIDE (test code = CL) 107 mmol/L 98-107 N CARBON DIOXIDE (test code = CO2) 25 mmol/L 21-32 N GLUCOSE (test code = GLU) mg/dL 65-99 BLOOD UREA NITROGEN (test code = mg/dL 7-18 BUN) GLOMERULAR FILTRATION RATE (test code = GFR) CREATININE (test code = CREAT) mg/dL 0.6-1.0 CALCIUM (test code = CA) 9.3 mg/dL 7.8-10.9 N UA RFLX MICR CULT IF [id number] 22:47:00 Test Item Value Reference Range Interpretation Comments UA COLOR (test code = Red YELLOW COLU) UA APPEARANCE (test code Ex.Turbid CLEAR = APPU) UA GLUCOSE DIPSTICK (test Normal NORMAL code = DGLUU) UA BILIRUBIN DIPSTICK Negative NEGATIVE (test code = BILU) UA KETONE DIPSTICK (test Negative NEGATIVE code = KETU) UA SPECIFIC GRAVITY (test 1.020 1.000-1.032 N code = SGU) UA BLOOD DIPSTICK (test +3 NEGATIVE A code = KEYUR) UA PH DIPSTICK (test code 5.5 5.0-9.0 N = BUCK) UA PROTEIN DIPSTICK (test 100 MG/DL NEGATIVE A code = PROU) UA UROBILINIOGEN DIPSTICK Normal NORMAL (test code = URO) UA NITRITE DIPSTICK (test Negative NEGATIVE code = LIZ) UA LEUKOCYTE ESTERASE 250 NEGATIVE A DIPSTICK (test code = LEUU) UA WBC (test code = WBCU) 31-50 0-5 A MARCO COOPER CALLED TO MEHRAN HARPER AT 2247 09/16/20.Whit Gallagher scillaCRITICAL VALUE READ BACK BY NURSE AND VERIF IED BY TECH? Y UA CULTURE NEEDED? (test code = UACULT) SOURCE: URINESPECIMEN DESCRIPTION: CMCIndication for culture: Suprapubic PainUA [id number] 22:47:00 Test Item Value Reference Range Interpretation Comments UA RBC (test code = RBCU) TNTC 0-5 UA MUCUS (test code = MUCU) OCC NONE-FEW SOURCE: URINESPECIMEN DESCRIPTION: CMCIndication for culture: Suprapubic PainUA RFLX MICR CULT IF [id number] 22:47:00 Test Item Value Reference Range Interpretation Comments UA COLOR (test code = Red YELLOW COLU) UA APPEARANCE (test Ex.Turbid CLEAR code = APPU) UA GLUCOSE DIPSTICK Normal NORMAL (test code = DGLUU) UA BILIRUBIN DIPSTICK Negative NEGATIVE (test code = BILU) UA KETONE DIPSTICK Negative NEGATIVE (test code = KETU) UA SPECIFIC GRAVITY 1.020 1.000-1.032 N (test code = SGU) UA BLOOD DIPSTICK (test +3 NEGATIVE A code = KEYUR) UA PH DIPSTICK (test 5.5 5.0-9.0 N code = BUCK) UA PROTEIN DIPSTICK 100 MG/DL NEGATIVE A (test code = PROU) UA UROBILINIOGEN Normal NORMAL DIPSTICK (test code = URO) UA NITRITE DIPSTICK Negative NEGATIVE (test code = LIZ) UA LEUKOCYTE ESTERASE 250 NEGATIVE A DIPSTICK (test code = LEUU) UA WBC (test code = 31-50 0-5 A RESULTS CALLED TO WBCU) MEHRAN HARPER AT 2247 09/16/20.Michael Gallagher iscillaCRITICAL VALUE READ BACK BY NURSE AND VERIF IED BY TECH? Y UA CULTURE NEEDED? Criteria met (test code = UACULT) SOURCE: URINESPECIMEN DESCRIPTION: CMCIndication for culture: Suprapubic PainUA [id number] 22:47:00 Test Item Value Reference Range Interpretation Comments UA RBC (test code = RBCU) TNTC 0-5 UA MUCUS (test code = MUCU) OCC NONE-FEW SOURCE: URINESPECIMEN DESCRIPTION: CMCIndication for culture: Suprapubic PainUA RFLX MICR CULT IF [id number] 22:37:00 Test Item Value Reference Range Interpretation Comments UA COLOR (test code = COLU) Red YELLOW UA APPEARANCE (test code = APPU) Ex.Turbid CLEAR UA GLUCOSE DIPSTICK (test code = Normal NORMAL DGLUU) UA BILIRUBIN DIPSTICK (test code = Negative NEGATIVE BILU) UA KETONE DIPSTICK (test code = Negative NEGATIVE KETU) UA SPECIFIC GRAVITY (test code = 1.020 1.000-1.032 N SGU) UA BLOOD DIPSTICK (test code = KEYUR) +3 NEGATIVE A UA PH DIPSTICK (test code = BUCK) 5.5 5.0-9.0 N UA PROTEIN DIPSTICK (test code = 100 MG/DL NEGATIVE A PROU) UA UROBILINIOGEN DIPSTICK (test Normal NORMAL code = URO) UA NITRITE DIPSTICK (test code = Negative NEGATIVE LIZ) UA LEUKOCYTE ESTERASE DIPSTICK 250 NEGATIVE A (test code = LEUU) UA WBC (test code = WBCU) 0-5 UA CULTURE NEEDED? (test code = UACULT) SOURCE: URINESPECIMEN DESCRIPTION: CMCIndication for culture: Suprapubic PainUA [id number] 22:37:00 Test Item Value Reference Range Interpretation Comments UA RBC (test code = RBCU) 0-5 SOURCE: URINESPECIMEN DESCRIPTION: CMCIndication for culture: Suprapubic Pain
[2020-09-27] MEDS ORDERED: MORPHINE 4 MG/ML SYR ONE (16:14)
[2020-09-27] MEDS ORDERED: ONDANSETRON 4 MG/2 ML VIAL ONE (16:15)
[2020-09-27 16:42] LABS: Absolute Lymphocytes (CBC) 1.9 K/uL (0.7-4.9); Basophils % 0.3 % (0-1.3); Hematocrit 24.5 % (36.0-45.0); Lymphocytes % 21.3 % (15.3-44.8); MPV 7.3 fL (7.6-11.3); RBC Red Blood Cell Count 3.11 M/uL (3.86-4.86)
[2020-09-27 16:54] LABS: BUN Blood Urea Nitrogen 11 mg/dL (7-18); Bicarbonate 26 mmol/L (21-32); Glucose Level 77 mg/dL (74-106); Potassium 3.7 mmol/L (3.5-5.1); Sodium Level 141 mmol/L (136-145)
[2020-09-27 17:29] LABS: Anisocytosis 2+; Blood Morphology Comment NOTED (NOT SEEN); Hypochromasia 2+; Platelet Estimate INCR; Stomatocytes 1+; Teardrop Cell 1+; White Blood Cell Scan OK (OK)
--- NOTE | 2020-09-27 18:03 | EDPHYS ---
Physician Documentation [facility] Name: Jess Vasquez Age: 30 yrs Sex: Female : 1990 Arrival Date: 09/27/2020 Time: 14:00 Bed 28 Private MD: ED Physician Sammy Gunn HPI: 09/27 15:20 This 30 yrs old Female presents to ER via Ambulatory with complaints of jmm Abdominal Pain. 15:20 The patient presents with vaginal bleeding that is. Onset: The symptoms/episode jmm began/occurred gradually, 1 month(s) ago. Modifying factors: The symptoms are alleviated by nothing, the symptoms are aggravated by nothing. Associated signs and symptoms: Pertinent positives: pelvic pain. This is a 30 year old female with no chronic medical conditions that presents to the ED with complaints of vaginal bleeding. Symptoms have been ongoing vaginal bleeding with intermittent episodes of pain. Denies weakness, shortness of breath, or fatigue. 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 - Social history:: Smoking status: Patient denies any tobacco usage or history of. ROS: 15:20 Constitutional: Negative for fever, chills, and weight loss, Cardiovascular: Negative jmm for chest pain, palpitations, and edema, Respiratory: Negative for shortness of breath, cough, wheezing, and pleuritic chest pain. 15:20 : Positive for vaginal bleeding. 15:20 All other systems are negative. Exam: 15:20 Constitutional: This is a well developed, well nourished patient who is awake, alert, jmm and in no acute distress. Head/Face: atraumatic. Eyes: EOMI, no conjunctival erythema appreciated ENT: Moist Mucus Membranes Neck: Trachea midline, Supple Chest/axilla: Normal chest wall appearance and motion. Cardiovascular: Regular rate and rhythm. No edema appreciated Respiratory: Normal respirations, no respiratory distress appreciated Abdomen/GI: Non distended, soft Back: Normal ROM Skin: General appearance color normal MS/ Extremity: Moves all extremities, no obvious deformities appreciated, no edema noted to the lower extremities Neuro: Awake and alert, normal gait Psych: Behavior is normal, Mood is normal, Patient is cooperative and pleasant 15:20 : Pelvic Exam: External exam: is normal, Speculum exam: mild bleeding. Vital Signs: 14:26 BP 128 / 69; Pulse 88; Resp 20; Temp 99.2(O); Pulse Ox 100% on R/A; Weight 105.23 kg; em Height 5 ft. 5 in. (165.10 cm); Pain 7/10; 16:50 BP 105 / 59; Pulse 82; Resp 16; Pulse Ox 100% on R/A; zb 17:52 BP 114 / 68; Pulse 101; Resp 16; Pulse Ox 100% on R/A; zb 14:26 Body Mass Index 38.61 (105.23 kg, 165.10 cm) em MDM: 15:20 Patient medically screened. [facility] 18:01 Data reviewed: vital signs, nurses notes. Counseling: I had a detailed discussion with fito the patient and/or guardian regarding: the historical points, exam findings, and any diagnostic results supporting the discharge/admit diagnosis, lab results, the need for outpatient follow up. ED course: Patient is asymptomatic and normotensive. Patient advised to follow up with explosive operator grenade within the next week for further evaluation. patient is otherwise given strict return precautions. Patient understood and agrees with the plan of care. . 09/27 15:40 Order name: CBC with Diff; Complete Time: 17:47 [facility] 09/27 15:40 Order name: BMP; Complete Time: 16:59 [facility] 09/27 15:40 Order name: Test, Serum; Complete Time: 16:59 [facility] 09/27 16:29 Order name: Urine Culture aa5 09/27 17:30 Order name: CBC Smear Scan; Complete Time: 17:47 [facility] 09/27 15:40 Order name: Saline Lock; Complete Time: 16:24 [facility] 09/27 15:40 Order name: Urine Dipstick-Ancillary (obtain specimen); Complete Time: 16:24 [facility] 09/27 17:10 Order name: Pelvic Exam Setup; Complete Time: 17:53 [facility] Administered Medications: 16:23 Drug: morphine 4 mg {Note: RASS 0.} Route: IVP; Site: left antecubital; zb 17:53 Follow up: Response: No adverse reaction; Marked relief of symptoms; Pain is decreased; zb RASS: Alert and Calm (0) 16:24 Drug: Zofran (Ondansetron) 4 mg Route: IVP; Site: left antecubital; zb 17:54 Follow up: Response: No adverse reaction zb Disposition: 09/27/20 18:02 Discharged to Home. Impression: Abnormal uterine and vaginal bleeding, unspecified, Anemia, unspecified. - Condition is Stable. - Discharge Instructions: Abnormal Uterine Bleeding. - Prescriptions for Colace 100 mg Oral Tablet - take 1 tablet by ORAL route every 12 hours; 14 tablet. Ferrous Sulfate 325 mg (65 mg Iron) Oral Tablet - take 1 tablet by ORAL route every 8 hours; 90 tablet. Ultracet 37.5- 325 mg Oral Tablet - take 1 tablet by ORAL route every 6 hours - for up to 5 days; do not exceed 8 tablets per day.; 20 tablet. - Medication Reconciliation Form, Thank You Letter, Antibiotic Education, Prescription Opioid Use form. - Follow up: Private Physician; When: 2 - 3 days; Reason: Recheck today's complaints, Continuance of care, Re-evaluation by your physician. Addendum: 09/29/2020 06:37 Co-signature as Attending Physician, Sammy Gunn MD I agree with the assessment and t w4 plan of care. Signatures: Dispatcher [employer] Bryant Pandey PA PA jmm Munoz, Edgar, RN RN Sammy Arguello MD MD tw4 Rowan Loving RN RN zb Corrections: (The following items were deleted from the chart) 09/27 18:11 18:02 09/27/2020 18:02 Discharged to Home. Impression: Abnormal uterine and vaginal zb bleeding, unspecified; Anemia, unspecified. Condition is Stable. Forms are Medication Reconciliation Form, Thank You Letter, Antibiotic Education, Prescription Opioid Use. Follow up: Private Physician; When: 2 - 3 days; Reason: Recheck today's complaints, Continuance of care, Re-evaluation by your physician. chas
--- NOTE | 2020-09-27 18:03 | ER ---
Nurse's Notes [facility] Name: Jess Vasquez Age: 30 yrs Sex: Female : 1990 Arrival Date: 09/27/2020 Time: 14:00 Bed 28 Private MD: Diagnosis: Abnormal uterine and vaginal bleeding, unspecified;Anemia, unspecified Presentation: 09/27 14:26 Chief complaint: Patient states: went to [place] 2 months ago and was given em Medroxiprogesterona 10 mg to help her start period, did not have period prior to medication for 2-3 months, bleeding for 28 days with heavy blood, has developed pelvic pain, denies burning with urination, denies being or N/V. Coronavirus screen: Client denies travel out of the [place] in the last 14 days. Ebola Screen: Patient negative for fever greater than or equal to 101.5 degrees Fahrenheit, and additional compatible Ebola Virus Disease symptoms Patient denies exposure to infectious person. Patient denies travel to an Ebola-affected area in the 21 days before illness onset. No symptoms or risks identified at this time. Initial Sepsis Screen: Does the patient meet any 2 criteria? No. Patient's initial sepsis screen is negative. Does the patient have a suspected source of infection? No. Patient's initial sepsis screen is negative. Risk Assessment: Do you want to hurt yourself or someone else? Patient reports no desire to harm self or others. Onset of symptoms was September 27, 2020. 14:26 Method Of Arrival: Ambulatory em 14:26 Acuity: MAGALY 3 em Triage Assessment: 18:10 General: Behavior is calm. 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 - Social history:: Smoking status: Patient denies any tobacco usage or history of. Screenin:42 Abuse screen: Denies threats or abuse. Denies injuries from another. Nutritional zb screening: No deficits noted. Tuberculosis screening: No symptoms or risk factors identified. Fall Risk None identified. Assessment: 15:29 Reassessment: ecp at bedside. unable to run axillary. okay to run culture. zb 15:40 General: Appears uncomfortable, Denies fever, feeling ill, fatigue, chills. Pain: zb Complains of pain in groin, right femoral area and left femoral area Pain currently is 9 out of 10 on a pain scale. Quality of pain is described as crampy. Neuro: Level of Consciousness is awake, alert, obeys commands, Oriented to person, place, time, situation. Cardiovascular: No deficits noted. Respiratory: Airway is patent Respiratory effort is even, unlabored, Respiratory pattern is regular, symmetrical. GI: Abdomen is round Bowel sounds present X 4 quads. Abdomen is tender to palpation in suprapubic area. : Urine is blood tinged, Reports vaginal bleeding that is bright red, with clots, heavy flow since 3 days. Derm: Skin is intact, is healthy with good turgor, Skin is dry, Skin is normal, Skin temperature is warm. Musculoskeletal: Circulation, motion, and sensation intact. Range of motion: intact in all extremities. 16:50 Reassessment: Patient appears in no apparent distress at this time. Patient and/or zb family updated on plan of care and expected duration. Pain level reassessed. Patient is alert, oriented x 3, equal unlabored respirations, skin warm/dry/pink. Patient denies pain at this time. 17:45 Reassessment: assisted provider with pelvic exam. zb 17:51 Reassessment: Patient appears in no apparent distress at this time. Patient and/or zb family updated on plan of care and expected duration. Pain level reassessed. Patient is alert, oriented x 3, equal unlabored respirations, skin warm/dry/pink. no changes at this time. pain decreased. Vital Signs: 14:26 BP 128 / 69; Pulse 88; Resp 20; Temp 99.2(O); Pulse Ox 100% on R/A; Weight 105.23 kg; em Height 5 ft. 5 in. (165.10 cm); Pain 7/10; 16:50 BP 105 / 59; Pulse 82; Resp 16; Pulse Ox 100% on R/A; zb 17:52 BP 114 / 68; Pulse 101; Resp 16; Pulse Ox 100% on R/A; zb 14:26 Body Mass Index 38.61 (105.23 kg, 165.10 cm) em ED Course: 14:00 Patient arrived in ED. mr 14:30 Triage completed. em 14:30 Arm band placed on. em 15:13 Rowan Loving, RN is Primary Nurse. zb 15:13 Bryant Wiley PA is PHCP. [facility] 15:13 Sammy Gunn MD is Attending Physician. jmm 15:42 Patient has correct armband on for positive identification. Bed in low position. Call zb light in reach. Side rails up X 1. Pulse ox on. NIBP on. Door closed. Noise minimized. 17:45 Assist provider with pelvic exam: Set up pelvic tray. Performed by Bryant CRANDALL zb Patient tolerated well. 18:11 IV discontinued, intact, bleeding controlled, No redness/swelling at site. Pressure zb dressing applied. Administered Medications: 16:23 Drug: morphine 4 mg {Note: RASS 0.} Route: IVP; Site: left antecubital; zb 17:53 Follow up: Response: No adverse reaction; Marked relief of symptoms; Pain is decreased; zb RASS: Alert and Calm (0) 16:24 Drug: Zofran (Ondansetron) 4 mg Route: IVP; Site: left antecubital; zb 17:54 Follow up: Response: No adverse reaction zb Outcome: 18:02 Discharge ordered by . [facility] 18:10 Discharged to home ambulatory. zb 18:10 Condition: stable 18:10 Discharge instructions given to patient, Instructed on discharge instructions, follow up and referral plans. medication usage, Demonstrated understanding of instructions, follow-up care, medications, Prescriptions given X 3. 18:11 Patient left the ED. zb Signatures: Bryant Wiley PA PA jmm Stanford Ofelia mr AhujaChandler, RN RN Rowan Loving, RN RN zb
[2020-09-27 18:35] VITALS: TEMP 99.2; O2SAT 100
[2020-09-27 18:37] VITALS: BP 114/68
== END 2020-09-27 18:11 | disposition home or self-care (01) ==
LOC: ER 13:56
DX: R10.2 Pelvic and perineal pain (principal); N93.9 Abnormal uterine and vaginal bleeding, unspecified; D64.9 Anemia, unspecified
CPT/HCPCS: 36415; 80048; 84703; 85025; 87086; 87088; 96374; 96375; 99284; J2405